=== PATIENT | female | born 1950 | race Caucasian/White ===

== ENCOUNTER → 2017-01-19 | Outpatient (CLI) | payer MEDICARE, OTHER ==
[~2017-01-19] MED LIST: ATOR40TA59 PO; CELE200C PO; GABA300S PO; HYDR-2672 PO; INSU100C4 SQ; INSU100V13 SQ; METF500T25 PO; METO25TA4 PO; MONT10TA9 PO; PANT40TA3 PO; QUIN20TA7 PO; TOPI100T90 PO
--- NOTE | 2017-01-19 15:29 | RAD ---
EXAM: Bilateral lower extremity arterial Doppler sonogram. HISTORY: Diabetic leg with discoloring and pain. TECHNIQUE: Grayscale and color Doppler sonographic imaging of the lower extremity arteries with spectral waveform analysis was performed. COMPARISON: None. FINDINGS: The exam is significantly limited due to patient discomfort and body habitus. There are triphasic waveforms throughout the majority of the bilateral lower extremity arteries, with exception of a biphasic waveform within the left peroneal artery. The proximal right posterior tibial and the right peroneal artery are not seen. There is mild atherosclerotic plaque within the right common femoral artery and left proximal superficial femoral artery. The peak systolic velocities within the right lower extremity measure 114 cm/s within the common femoral artery, 67 cm/s within the deep femoral artery, 90 cm/s within the proximal superficial femoral artery, 84 cm/s within the mid superficial femoral artery, 100 cm/s within the distal superficial femoral artery, 92 cm/s within the popliteal artery, 109 cm/s the distal posterior tibial artery, 87 cm/s within the anterior tibial artery, and 61 cm/s within the dorsalis pedis artery. The peak systolic velocities within the left lower extremity measure 114 cm/s within the common femoral artery, 81 cm/s within the deep femoral artery, 139 cm/s within the proximal superficial femoral artery, 132 cm/s within the mid superficial femoral artery, 99 cm/s within the distal superficial femoral artery, 80 cm/s within the popliteal artery, 103 cm/s within the proximal posterior tibial artery, 125 cm/s the distal posterior tibial artery, 97 cm/s within the peroneal artery, 117 cm/s within the anterior tibial artery, and 89 cm/s within the dorsalis pedis artery. IMPRESSION: 1. Significantly limited exam due to patient discomfort and body habitus. Ankle-brachial indices could not be assessed due to patient pain and the right proximal posterior tibial artery and peroneal artery are not seen. 2. Peak systolic waveforms within the lower extremity arteries, described in detail above. No occlusion is seen.
== END | disposition home or self-care (01) ==
LOC: US 10:21
PROVIDERS: ATTEND Physician Assistant
DX: I73.9 Peripheral vascular disease, unspecified (principal); I87.8 Other specified disorders of veins; E11.9 Type 2 diabetes mellitus without complications; S81.802A Unspecified open wound, left lower leg, initial encounter; W19.XXXA Unspecified fall, initial encounter; Y93.89 Activity, other specified; Y92.89 Other specified places as the place of occurrence of the external cause; Y99.8 Other external cause status
CPT/HCPCS: 93923

== ENCOUNTER → 2017-02-08 | Outpatient (CLI) | payer MEDICARE, OTHER ==
--- NOTE | 2017-02-08 10:52 | RAD ---
Indication neck pain. No known injury. AP and lateral views of the cervical spine were obtained as well as a swimmer's view. There may be some slight prevertebral soft tissue swelling. (The appearance may be a reflection of patient body habitus). Clinical correlation advised. Vertebral height and alignment are well maintained. There is some mild disc space narrowing at C5-6 and C6-7. An acute bony finding is not seen. IMPRESSION: Mild spondylitic changes. No acute finding seen. Possible minimal prevertebral soft tissue swelling. Clinical correlation advised
== END | disposition home or self-care (01) ==
LOC: DXRADRC 10:30
PROVIDERS: ATTEND Physician Assistant
DX: M46.92 Unspecified inflammatory spondylopathy, cervical region (principal); M25.511 Pain in right shoulder
CPT/HCPCS: 72040

== ENCOUNTER 2017-02-13 14:41 | Emergency (ER) | payer MEDICARE, OTHER ==
[2017-02-13 15:22] LABS: BASO # 0.1 x10^3/uL (0.0-0.2); BASO % 1 % (0-3); EOS % 0 % (0-3); HEMATOCRIT 41.8 % (36.0-47.0); HEMOGLOBIN 13.6 g/dL (12.0-15.5); LYMPH # 1.3 x10^3/uL (1.0-4.8); LYMPH % 8 % (24-48); MEAN CORPUSCULAR HEMOGLOBIN 28 pg (25-35); MEAN CORPUSCULAR HGB CONC 33 g/dL (31-37); MEAN CORPUSCULAR VOLUME 87 fL (79-100); MONO # 1.1 x10^3/uL (0.0-1.1); MONO % 7 % (0-9); NEUT # 13.3 x10^3uL (1.8-7.7); NEUT % 84 % (31-73); PLATELET COUNT 146 x10^3/uL (140-400); RED BLOOD COUNT 4.83 x10^6/uL (3.50-5.40); RED CELL DISTRIBUTION WIDTH 14.5 % (11.5-14.5); WHITE BLOOD COUNT 15.9 x10^3/uL (4.0-11.0)
[2017-02-13 15:34] LABS: ALBUMIN 3.4 g/dL (3.4-5.0); CALCIUM 8.9 mg/dL (8.5-10.1); CREATININE 0.9 mg/dL (0.6-1.0); GFR 62.5; POTASSIUM 4.1 mmol/L (3.5-5.1); TOTAL BILIRUBIN 0.9 mg/dL (0.2-1.0); TOTAL PROTEIN 6.8 g/dL (6.4-8.2)
[2017-02-13] MEDS ORDERED: IOHEXOL 300 MG/ML 75 ML VIAL. IV ONE (16:00)
[2017-02-13 16:01] LABS: % BANDS 3 % (0-9); % LYMPHS 10 % (24-48); % MONOS 7 % (0-10); % SEGS 80 % (35-66); PLT ESTIMATE DECREASED (ADEQUATE)
[2017-02-13 16:02] LABS: TOXIC GRANULATION SLIGHT
--- NOTE | 2017-02-13 16:10 | ED.ADGEN ---
Past History Past Medical History: Arthritis, COPD, Diabetes Past Surgical History: Appendectomy, Hysterectomy, Oophorectomy, Other Smoking: Non-smoker Alcohol Use: None Drug Use: None Adult General Chief Complaint Chief Complaint Post dental extraction facial pain HPI HPI Patient is a 76-year-old [id number] diabetic who presents with post- dental extraction submandibular neck pain, tenderness in difficulty swallowing. Patient had all alternating upper and lower teeth extracted 4 days ago. She states she has had increased pain and swelling and redness to submandibular and submental region. She's been unable to take pain medication due to pain with swallowing and is not currently on antibiotics.. She has not had fever chills or sweats. Patient was evaluated by her dentist earlier today and was reassured. She was then seen by her PCP and referred to the ED for further evaluation. No other acute symptoms or complaints. Review of Systems Review of Systems ROS as per HPI. Current Medications Current Medications Current Medications Medications (Trade) Dose Ordered Sig/Colleen Start Time Stop Time Status Last Admin Dose Admin Clindamycin Phosphate (Cleocin 900mg Premix) 50 ml @ 100 mls/hr 1X ONCE 02/13/17 17:00 02/13/17 17:29 DC 02/13/17 16:58 100 MLS/HR Fentanyl Citrate (Fentanyl 2ml Vial) 50 mcg 1X ONCE 02/13/17 17:30 02/13/17 17:31 DC 02/13/17 17:29 50 MCG Iohexol 75 ml 75 ml 1X ONCE 02/13/17 16:00 02/13/17 16:01 DC Ondansetron HCl (Zofran) 4 mg 1X ONCE 02/13/17 17:30 02/13/17 17:31 DC 02/13/17 17:25 4 MG Sodium Chloride 1,000 ml @ 1,000 mls/hr 1X ONCE 02/13/17 16:45 02/13/17 17:44 02/13/17 16:56 1,000 MLS/HR Allergies Allergies Allergies Coded Allergies Type Severity Reaction Last Updated Verified codeine Allergy Intermediate 02/13/17 Yes Physical Exam Physical Exam Constitutional: Well developed, well nourished, no acute distress, non-toxic appearance. HENT: Normocephalic, mild erythema submandibular and submental region with soft tissue tenderness to palpation. No appreciated induration or fluctuance. Exam limited due to the amount of adipose tissue and neck region. No dysphonia, trismus, hoarseness or drooling. Mouth, moist mucous membranes, edentulous. Eyes: PERRLA, EOMI. Neck: Normal range of motion, no tenderness, supple, anterior soft tissue tenderness. Cardiovascular:Heart rate regular rhythm, no murmur. Lungs & Thorax: Bilateral breath sounds clear to auscultation. Skin: Warm, dry, no erythema, mild erythema of lower chin and anterior neck. Current Patient Data Vital Signs Vital Signs Date Time Temp Pulse Resp B/P Pulse Ox O2 Delivery O2 Flow Rate FiO2 02/13/17 17:29 16 95 02/13/17 16:59 109 128/71 Room Air 02/13/17 14:45 99.3 Lab Results Laboratory Tests Test 02/13/17 14:59 White Blood Count 15.9x10^3/uL (4.0-11.0) H Red Blood Count 4.83x10^6/uL (3.50-5.40) Hemoglobin 13.6g/dL (12.0-15.5) Hematocrit 41.8% (36.0-47.0) Mean Corpuscular Volume 87fL (79-100) Mean Corpuscular Hemoglobin 28pg (25-35) Mean Corpuscular Hemoglobin Concent 33g/dL (31-37) Red Cell Distribution Width 14.5% (11.5-14.5) Platelet Count 146x10^3/uL (140-400) Neutrophils (%) (Auto) 84% (31-73) H Lymphocytes (%) (Auto) 8% (24-48) L Monocytes (%) (Auto) 7% (0-9) Eosinophils (%) (Auto) 0% (0-3) Basophils (%) (Auto) 1% (0-3) Neutrophils # (Auto) 13.3x10^3uL (1.8-7.7) H Lymphocytes # (Auto) 1.3x10^3/uL (1.0-4.8) Monocytes # (Auto) 1.1x10^3/uL (0.0-1.1) Eosinophils # (Auto) 0.0x10^3/uL (0.0-0.7) Basophils # (Auto) 0.1x10^3/uL (0.0-0.2) Segmented Neutrophils % 80% (35-66) H Band Neutrophils % 3% (0-9) Lymphocytes % 10% (24-48) L Monocytes % 7% (0-10) Toxic Granulation Slight Platelet Estimate Decreased (ADEQUATE) Sodium Level 140mmol/L (136-145) Potassium Level 4.1mmol/L (3.5-5.1) Chloride Level 102mmol/L (98-107) Carbon Dioxide Level 28mmol/L (21-32) Anion Gap 10 (6-14) Blood Urea Nitrogen 11mg/dL (7-20) Creatinine 0.9mg/dL (0.6-1.0) Estimated GFR (Cockcroft-Gault) 62.5 BUN/Creatinine Ratio 12 (6-20) Glucose Level 257mg/dL (70-99) H Calcium Level 8.9mg/dL (8.5-10.1) Total Bilirubin 0.9mg/dL (0.2-1.0) Aspartate Amino Transferase (AST) 11U/L (15-37) L Alanine Aminotransferase (ALT) 22U/L (14-59) Alkaline Phosphatase 82U/L (46-116) C-Reactive Protein 133.0mg/L (0-3.3) H Total Protein 6.8g/dL (6.4-8.2) Albumin 3.4g/dL (3.4-5.0) Albumin/Globulin Ratio 1.0 (1.0-1.7) EKG EKG [] Radiology/Procedures Radiology/Procedures [CT tissue neck: Sublingual soft tissue swelling, cellulitis concerning for Rony angina and cellulitis of anterior neck.] Impressions: Sublingual swelling and cellulitis of anterior neck Course & Med Decision Making Course & Med Decision Making Pertinent Labs and Imaging studies reviewed. (See chart for details) [IV anabiotic started. Patient except by Dr. Gurmeet Ware at [facility] for admission to the ICU.] Final Impression Final Impression [1. Cellulitis neck 2. Sublingual infection/early abscess] Problems: Dragon Disclaimer Dragon Disclaimer This electronic medical record was generated, in whole or in part, using a voice recognition dictation system. THEO JACKSON DO Feb 13, 2017 16:10
[2017-02-13] MEDS ORDERED: IV NORMAL SALINE 1,000ML 1,000 ML IV ONE (16:45)
--- NOTE | 2017-02-13 16:47 | RAD ---
CT neck with IV contrast History: Swelling and hardness. Comparison: None. Technique: Helical CT of the neck was performed after the administration of intravenous contrast, 75 mL Omnipaque 300. Axial, sagittal, and coronal reconstructions were obtained. One or more of the following individualized dose reduction techniques were utilized for the study: Automated exposure control Adjustment of mA and/or kV according to patient's size Use of iterative reconstruction technique. Findings: There is quantum mottle artifact secondary to the patient's body habitus. There is soft tissue infiltration and inflammation of the anterior neck deep to the platysma from the level of the mandible through the thyroid cartilage. There is also mild thickening of the platysma. Multiple small bilateral neck lymph nodes are seen, compatible with a reactive etiology. There also appears to be a subtle low-attenuation involving the anterior floor the mouth measuring up to 1.5 cm. Consequently, this could represent a developing abscess of the floor the mouth and could represent changes of the Ludgwig's angina. Vocal cords are adducted. Impression: 1. There is inflammatory change as well as evidence of a possible, early abscess involving the anterior floor of the mouth. Consequently, findings could represent early changes of Ludgwig's angina. 2. Inflammatory change involving the anterior neck involving the subcutaneous soft tissues as well as platysma, compatible with cellulitis and myositis. 3. Reactive lymphadenopathy. 4. Results discussed with referring physician, Dr. Alegre, at 1645 hours.
[2017-02-13] MEDS ORDERED: CLINDAMYCIN 900MG PREMIX 50 ML IV ONE (17:00)
[2017-02-13 17:25] VITALS: BP 137/67
[2017-02-13] MEDS ORDERED: FENTANYL PF 100 MCG/2 ML VIAL. IV ONE (17:30)
[2017-02-13] MEDS ORDERED: ONDANSETRON PF 4 MG/2 ML VIAL. IV ONE (17:30)
== END 2017-02-13 18:45 | disposition short-term general hospital (02) ==
LOC: ER 14:41
DX: L03.221 Cellulitis of neck (principal); J44.9 Chronic obstructive pulmonary disease, unspecified; E11.9 Type 2 diabetes mellitus without complications; M19.90 Unspecified osteoarthritis, unspecified site; Z88.5 Allergy status to narcotic agent
CPT/HCPCS: 36415; 70491; 80053; 85007; 85027; 86140; 87040; 87205; 96365; 96375; 99285; J2405; J3010; J3490; J7030

== ENCOUNTER → 2017-08-14 | Outpatient (CLI) | payer MEDICARE, OTHER ==
[~2017-08-14] MED LIST changes: -HYDR-2672 PO; +HYDR-2766 PO; +QUIN20TA17 PO; -QUIN20TA7 PO; +TOPI100T8 PO; -TOPI100T90 PO
--- NOTE | 2017-08-15 15:04 | RAD ---
DATE: 08/14/2017 EXAM: DIGITAL SCREEN BILAT W/CAD HISTORY: Astigmatic screening mammogram. Family history of breast cancer involving patient's sister. COMPARISON: Prior mammogram from 04/16/2015, 03/13/2014 This study was interpreted with the benefit of Computerized Aided Detection (CAD). The breast parenchyma is primarily fatty replaced. Breast parenchyma level density A. FINDINGS: Bilateral CC and MLO views of the breasts were performed. Right breast: There are no suspicious microcalcifications, masses or areas of architectural distortion. Left breast: There are no suspicious microcalcifications, masses or areas of architectural distortion. Findings are stable from prior mammogram. IMPRESSION: Negative bilateral mammogram. Recommend annual screening mammography. BI-RADS CATEGORY: 1 NEGATIVE RECOMMENDED FOLLOW-UP: 12M 12 MONTH FOLLOW-UP PQRS compliance statement: Patient information was entered into a reminder system with a target due date 08/14/2018 for the next mammogram. Mammography is a sensitive method for finding small breast cancers, but it does not detect them all and is not a substitute for careful clinical examination. A negative mammogram does not negate a clinically suspicious finding and should not result in delay in biopsying a clinically suspicious abnormality. "Our facility is accredited by the [employer] Mammography Program."
== END | disposition home or self-care (01) ==
LOC: MAMMO 08:51
PROVIDERS: ATTEND Physician Assistant
DX: Z12.31 Encounter for screening mammogram for malignant neoplasm of breast (principal); Z80.3 Family history of malignant neoplasm of breast
CPT/HCPCS: G0202; 77067

== ENCOUNTER 2017-08-19 11:27 | Inpatient (IN) | payer MEDICARE, OTHER ==
[~2017-08-19] VITALS: Ht 170.2 cm; Wt 180.1 kg
[2017-08-19] VITALS (9 sets, daily range): BP systolic 123–167; BP diastolic 59–78
[2017-08-19] MEDS ORDERED: NITROGLYCERIN SUBLINGUAL 0.4 MG BOTTLE OF 25. SL PRN (11:45)
[2017-08-19] MEDS ORDERED: IPRATRPIUM/ALBUTEROL 0.5/2.5MG 3 ML NEBU. NEB ONE (11:45)
[2017-08-19] MEDS ORDERED: methylPREDNISolone SOD SUCC PF 125 MG/2 ML VIAL. IV ONE (12:00)
[2017-08-19] MEDS ORDERED: ASPIRIN 81 MG TAB.CHEW PO ONE (12:00)
--- NOTE | 2017-08-19 12:13 | PHYS DOC ---
General Chief Complaint: SHORTNESS OF BREATH Stated Complaint: SOB Time Seen by MD: 11:29 Source: patient, EMS, old records Exam Limitations: no limitations Problems: History of Present Illness Initial Comments Patient is a 66-year-old female who uses home O2 when necessary brought to the ED by EMS with chest pain and trouble breathing. Patient states that for the past 3 days she's had intermittent periods of "shakiness" accompanied by chills and sweats and difficulty breathing. She's had some intermittent dry cough and general malaise. Today the patient states that she was essentially at rest "moving around in a chair" when she developed sudden onset chest pain described as tightness across her anterior chest, shortness of breath, 1 episode of nausea with nonbloody emesis, and diaphoresis with "shakiness." She states that she felt weak and was unable to stand to get to her home O2 so her life alert was activated. EMS reports that on arrival they found the patient to be in respiratory distress with room air oxygen saturation 86%. Her oxygen saturation quickly improved to above 95% with 4 L O2 per nasal cannula, and the patient states that her chest pain resolved shortly after the administration of O2 per nasal cannula. No other pre-arrival treatment was administered and once the patient was transferred to the emergency department exam table her oxygen level improved and she removed her O2 with persistent room air oxygen saturations 98- 100%. She was tachycardic on arrival 116 bpm and although her oxygen saturations improved she remained persistently tachycardic however around 110 bpm. When I spoke with her she spoke in full sentences with no conversational dyspnea and her oxygen saturation remained unchanged. On ED arrival her only complaint was a remaining 1/10 anterior chest tightness which was greatly improved no other complaints upon arrival. Patient has severe lower extremity edema which she states has not changed in the past few days. Patient denies ever being a smoker but does carry past medical history diagnosis of COPD in addition to chronic hypoxia, diabetes, morbid obesity, and osteoarthritis. Fingerstick blood sugar on arrival 262. Patient states that she is up-to-date with pneumonia and influenza vaccines Timing/Duration: 1/2 hour Severity: severe Modifying Factors: improves with other Associated Symptoms: chest pain, cough, diaphoresis, fever/chills, malaise, nausea/vomiting, shortness of breath, weakness Allergies: Coded Allergies: codeine (Verified Allergy, Intermediate, 4/24/17) Past Medical History Medical History: other (COPD, chronic hypoxia uses home O2 when necessary, diabetes, morbid obesity, osteoarthritis) Surgical History: appendectomy (hysterectomy with oophorectomy) Social History Smoker: non-smoker Alcohol: none Drugs: none Review of Systems Constitutional: see HPI EENTM: denies nose pain, denies nose congestion, denies throat pain, denies throat swelling, denies mouth pain Respiratory: see HPI Cardiovascular: see HPI Gastrointestinal: see HPI, denies abdominal pain Genitourinary: denies dysuria, denies hematuria, denies pain Musculoskeletal: denies back pain, denies joint swelling, denies neck pain Psychiatric/Neurological: see HPI, denies numbness, denies paresthesia, tremors , denies weakness Hematologic/Lymphatic: denies blood clots, denies easy bleeding, denies easy bruising Physical Exam General Appearance: mild distress, obese Eyes: bilateral eye PERRL, bilateral eye EOMI Ear, Nose, Throat: hearing grossly normal, normal ENT inspection, normal pharynx Neck: non-tender, supple Respiratory: other (mildly decreased breath sounds at the bases with rales at the right midlung) Cardiovascular: tachycardia, systolic murmur (III/ LSB) Gastrointestinal: soft (obese, BS normal, nontender no palpable mass) Back: no CVA tenderness, no vertebral tenderness Extremities: other (4+ pitting lower extremity edema involving bilateral lower legs, chronic venous stasis skin changes with 3 small left lower leg draining venous stasis ulcers) Neurologic/Psychiatric: brim raiser II-XII nml as tested (admitting likely not do that) , no motor/sensory deficits, alert, normal mood/affect, oriented x 3 Skin: warm/dry (lower extremity skin changes as above) Orders, Labs, Meds EKG: sinus tachycardia 106 bpm, prolonged DC 208ms no STEMI changes. Interpreted by Dr Rocha. ABG: pH 7.411, pCO2 35.3, pO2 85, BE -2, HCO3 22.5, TCO2 24, sO2 97%, T 100.4 F PATIENT: RADHA MORENO ACCOUNT: [id number] : 1950 LOCATION: ER AGE: 66 SEX: F EXAM STATUS: REG ER ORD. PHYSICIAN: REVA ROCHA DO REASON: sob PROCEDURE: PORTABLE CHEST 1V PORTABLE CHEST 1V Clinical Indication: sob Comparison: Chest radiograph dated 12/22/2016 Findings: Study limited by patient's body habitus. Low lung volume. No focal consolidation. Normal pulmonary vasculature. No definite pleural effusion or pneumothorax. Stable cardiomegaly. Stable tortuous thoracic aorta. No acute osseous abnormality. IMPRESSION: Low lung volumes. No focal consolidation. DICTATED AND SIGNED BY: KENDALL MENDOZA MD DATE: 08/19/17 1213 CC: MARCO ANTONIO DOUGHERTY; REVA ROCHA DO ~ 1326: Pertinent labs: Platelets 107 and white count is normal, d-dimer 0.94, lactic acid 2.0, BNP 307, urinalysis grossly positive for infection. Patient has received Rocephin and aspirin on arrival and will need CTA of the chest as well as lower extremity Dopplers. Patient will need to be admitted for further evaluation and treatment she is agreeable. 1335: I discussed the patient history, presentation, and ED workup length with production clerks supervisor hospitalist Dr Ortiz. After thorough discussion he requests that the patient be admitted to inpatient ICU status and is in agreement with Rocephin IV , at this time requests IV fluids be held. He requests serial cardiac enzymes and respiratory support, he is in agreement that due to the elevated d-dimer with her constellation of symptoms she will need CTA of the chest to rule out PE as well as bilateral lower extremity Dopplers to rule out DVT. Additionally he requests echocardiogram and cardiology consultation. Although the patient was inpatient status she was held in the emergency department for completion of CTA/ultrasound studies. Her vital signs remained stable and she remained asymptomatic throughout the remainder of her ED course. Impressions: Sepsis Chest pain Respiratory distress Urinary tract infection Elevated d-dimer rule out DVT/PE Diabetes poorly controlled. Departure Disposition: 09 ADMITTED INPATIENT Additional Instructions: Inpatient ICU admission Dr. Ortiz is accepting. REVA ROCHA DO Aug 19, 2017 12:13
--- NOTE | 2017-08-19 12:18 | RAD ---
PORTABLE CHEST 1V Clinical Indication: sob Comparison: Chest radiograph dated 12/22/2016 Findings: Study limited by patient's body habitus. Low lung volume. No focal consolidation. Normal pulmonary vasculature. No definite pleural effusion or pneumothorax. Stable cardiomegaly. Stable tortuous thoracic aorta. No acute osseous abnormality. IMPRESSION: Low lung volumes. No focal consolidation.
[2017-08-19 12:45] LABS: BGAS PH 7.4 (7.35-7.45); DELTA BASE BGAS 0.2 mmol/L (0-3)
[2017-08-19] MEDS ORDERED: cefTRIAXone SODIUM 1 GM VIAL IV ONE (12:52)
[2017-08-19] MEDS ORDERED: IV NORMAL SALINE 50ML 50 ML ONE (12:52)
[2017-08-19] MEDS ORDERED: ACETAMINOPHEN 325 MG TABLET PO ONE (13:00)
[2017-08-19 13:10] LABS: ALBUMIN 3.2 g/dL (3.4-5.0); ALBUMIN/GLOBULIN RATIO 0.8 (1.0-1.7); CALCIUM 8.9 mg/dL (8.5-10.1); CREATININE 0.9 mg/dL (0.6-1.0); GFR 62.5; POTASSIUM 3.5 mmol/L (3.5-5.1); TOTAL BILIRUBIN 0.6 mg/dL (0.2-1.0); TOTAL PROTEIN 7.1 g/dL (6.4-8.2)
[2017-08-19 13:16] LABS: BASO % 0 % (0-3); EOS # 0.1 x10^3/uL (0.0-0.7); EOS % 1 % (0-3); HEMATOCRIT 37.3 % (36.0-47.0); HEMOGLOBIN 12.3 g/dL (12.0-15.5); LYMPH # 0.6 x10^3/uL (1.0-4.8); LYMPH % 6 % (24-48); MEAN CORPUSCULAR HEMOGLOBIN 28 pg (25-35); MEAN CORPUSCULAR HGB CONC 33 g/dL (31-37); MEAN CORPUSCULAR VOLUME 85 fL (79-100); MONO # 0.6 x10^3/uL (0.0-1.1); MONO % 6 % (0-9); NEUT # 8.4 x10^3uL (1.8-7.7); NEUT % 87 % (31-73); PLATELET COUNT 107 x10^3/uL (140-400); RED BLOOD COUNT 4.41 x10^6/uL (3.50-5.40); RED CELL DISTRIBUTION WIDTH 14.5 % (11.5-14.5); WHITE BLOOD COUNT 9.7 x10^3/uL (4.0-11.0)
[2017-08-19 13:17] LABS: BILIRUBIN,URINE NEG (NEG); CLARITY,URINE CLOUDY; COLOR,URINE YELLOW; GLUCOSE,URINE 250 mg/dL (NEG); NITRITE,URINE NEG (NEG); UROBILINOGEN,URINE 1 mg/dL (0.2 mg/dL)
[2017-08-19 13:18] LABS: BACTERIA,URINE FEW /HPF (0-FEW); SQUAMOUS EPITHELIAL CELL,UR OCC /LPF; WBC,URINE 20-40 /HPF (0-4)
--- NOTE | 2017-08-19 13:29 | EKG ---
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
[2017-08-19] MEDS ORDERED: IOHEXOL 300 MG/ML 75 ML VIAL. IV ONE (13:45)
[2017-08-19 13:50] LABS: INFLUENZA A PATIENT NEGATIVE (NEGATIVE); INFLUENZA B PATIENT NEGATIVE (NEGATIVE)
[2017-08-19] MEDS ORDERED: ONDANSETRON PF 4 MG/2 ML VIAL. IV PRN (14:00)
--- NOTE | 2017-08-19 14:55 | RAD ---
CT CHEST WITH CONTRAST, PULMONARY ANGIOGRAM History: cp, sob, elev d-dimer Comparison: Chest radiograph performed same day. Technique: Helical CT of the chest was performed after the administration of 75 cc of Omnipaque 300 intravenous contrast according to PE protocol. 3-D MIP coronal reconstruction was performed to better evaluate the pulmonary arteries. Findings: Suboptimal contrast bolus limits evaluation of the segmental and subsegmental pulmonary arterial system. No definite central or lobar pulmonary embolism. The pulmonary trunk is enlarged measuring 3.5 cm. The thyroid is symmetric. There is no axillary, mediastinal, or hilar adenopathy. The thoracic aorta diameter is normal. Origin of the left vertebral artery directly off the aortic arch, a normal variant. Borderline cardiomegaly There is no pericardial effusion. The central airways are patent. 0.5 cm right lower lobe pulmonary nodule (image 87, series 4). There is no focal consolidation. No pleural effusion is observed. There is no pneumothorax. The visualized upper abdomen is unremarkable. There are moderate degenerative changes of the thoracic spine. IMPRESSION: 1. Suboptimal contrast bolus limits evaluation of the segmental and subsegmental pulmonary arterial system. No definite central or lobar pulmonary embolism. 2. The pulmonary trunk is enlarged measuring 3.5 cm which can be seen with pulmonary hypertension. 3. 0.5 cm right lower lobe pulmonary nodule. Following Fleischner criteria below, if the patient is of low risk, recommend follow-up chest CT in 12 months. If the patient is of high risk, recommend follow-up chest CT in 6-12 months. Nodules detected incidentally at non-screening CT Nodule size (mm) less than or equal to 4 Low Risk patients- no follow-up needed High Risk patients- follow-up at 12 months and if no change, no further imaging needed. Nodule size > 4-6 mm Low risk patients- follow- up at 12 months and if no change, no further imaging needed High risk patients- initial follow-up CT at 6-12 months and then at 18-24 months if no change. Nodule Size > 6-8 mm Low risk patients- initial follow-up CT at 6-12 months and then at 18-24 months if no change. High risk patients- initial follow- up CT at 3-6 months and then at 9-12 months if no change, Nodule Size >8 mm Either low or high risk patients: Follow-up CT at around 3, 9 and 24 [address], PET, and/or biopsy Note: newly detected indeterminate nodule in person 35 years of age or older. Low risk patients- minimal or absent history of smoking and/or other known risk factors. High risk patients- history of smoking or of other known risk factors. PQRS Compliance Statement: One or more of the following individualized dose reduction techniques were utilized for this examination: 1. Automated exposure control 2. Adjustment of the mA and/or kV according to patient size 3. Use of iterative reconstruction technique PQRS Compliance Statement: One or more of the following individualized dose reduction techniques were utilized for this examination: 1. Automated exposure control 2. Adjustment of the mA and/or kV according to patient size 3. Use of iterative reconstruction technique
--- NOTE | 2017-08-19 15:55 | RAD ---
Bilateral lower extremity venous Doppler ultrasound History: elevated d-dimer, abimael leg edema Comparison: None. Procedure: Color flow Doppler, Doppler spectral analysis, and 2D images are obtained with and without compression in the area of the common femoral vein, superficial femoral vein - femoral vein junction, main femoral vein (superficial femoral vein) and popliteal vein. Veins of the proximal calf are also imaged. Findings: Technically difficult exam due to body habitus and leg swelling. Unable to visualize bilateral calf veins. There is normal color flow, augmentation, and compressibility of all visualized vein segments. No evidence of deep venous thrombus is present. There is a prominent lymph node in the left groin. IMPRESSION: 1. No evidence of right or left lower extremity deep venous thrombosis. 2. Unable to visualize calf veins bilaterally. Technically difficult exam. Electronically signed by: Warner Ferreira MD (08/19/2017 3:52 PM) [facility] [place]
[2017-08-19] MEDS ORDERED: SERT50TA PO (16:37)
[2017-08-19] MEDS ORDERED: ASPI81TA50 PO (16:37)
[2017-08-19] MEDS ORDERED: LIRA0.6P2 SQ (16:37)
[2017-08-19] MEDS ORDERED: LISI10TA2 PO (16:38)
[2017-08-19] MEDS ORDERED: LEVO5TAB2 PO (16:39)
[2017-08-19] MEDS ORDERED: MUPI22OI2 TP (16:40)
[2017-08-19] MEDS ORDERED: MONT10TA9 PO (16:42)
[2017-08-19] MEDS ORDERED: HYDROcodone/APAP 10/325 1 TAB TABLET PO PRN (17:30)
[2017-08-19] MEDS ORDERED: DEXTROSE 50% 25 GM / 50ML DISP.SYRIN. IV PRN (18:00)
[2017-08-19] MEDS ORDERED: AZITHROMYCIN 500 MG VIAL. IV ONE (18:22)
[2017-08-19] MEDS ORDERED: IV NORMAL SALINE 250ML 250 ML ONE (18:22)
[2017-08-19] MEDS: AZITHROMYCIN 500 MG in IV NORMAL SALINE 250ML 250 ML IV SCH (19:18)
[2017-08-19] MEDS: ACETAMINOPHEN 325 MG TABLET PO PRN (19:39)
[2017-08-19] MEDS: ENOXAPARIN ** NOTE DOSE ** SYRINGE SQ SCH (19:39)
--- NOTE | 2017-08-19 20:15 | HP ---
ADMIT DATE: 08/19/2017 HISTORY OF PRESENT ILLNESS: The patient is a 66-year-old female patient, who was brought to the Emergency Room by the emergency medical service personnel with chest pain and shortness of breath. The patient stated that for the past 3 days, she had had intermittent periods of shakiness accompanied with chills and sweats, and difficulty breathing. She had some intermittent dry cough and general malaise today. She stated that she was essentially at rest, moving around in a chair and she developed sudden onset of chest pain described as tightness across her anterior chest with shortness of breath, one episode of nausea and nonbloody emesis, and diaphoresis with shakiness. She stated that she felt weak and was unable to stand to get to her oxygen, so her Life Alert was activated. Upon arrival of the emergency medical service personnel, they found the patient to be in respiratory distress with oxygen saturation of only 86%. Her oxygen saturation quickly improved to about 95% with 4 liters of oxygen by nasal cannula. Her chest pain has resolved shortly after the administration of oxygen by nasal cannula. No other treatment was administered unless the patient was transferred to Emergency Department. Her oxygen level improved and she removed her oxygen with persistent room air oxygen of 98-100%. She was slightly tachycardic on arrival at 116 beats per minute and although her oxygen saturation improved, she remained persistently tachycardic around 110 beats per minute. She was able to finish sentences without any shortness of breath and without desaturation and the only complaint when she arrived to the Emergency Room was mild chest tightness that has greatly improved. She was evaluated in the Emergency Room; however, her white cell count was normal. She was found to have a low platelet count. Her blood gases were within acceptable range. However, his D-dimer was elevated at 0.94 and therefore the patient has had a CT scan of the chest with PE protocol and bilateral lower extremity venous Doppler ultrasound and she has a tendency for recurrent urinary tract infection, in fact her urinalysis showed that she has moderate amount of leukocyte esterase, 20-40 wbc's, and few bacteria and she was admitted to continue with oxygen therapy, continue with IV antibiotic and was started on IV Rocephin. She was given one dose of Lovenox, pending the results of CT scan and Doppler ultrasound. PAST MEDICAL HISTORY: Significant for type 2 diabetes mellitus, COPD, morbid obesity, obstructive sleep apnea, recurrent urinary tract infection, and Rony's angina. PAST SURGICAL HISTORY: Significant for incision of the neck abscess, total abdominal hysterectomy and bilateral salpingo-oophorectomy, cholecystectomy, appendectomy. She underwent gastric bypass surgery, esophagogastroduodenoscopy, colonoscopy with polypectomy. The patient stated that she lost about 80 pounds after she has gastric bypass surgery; however, she regained all her weight when they revised the surgery; however, last year she managed to lose about 100 pounds on her own. ALLERGIES: She is ALLERGIC TO CODEINE and she has also SEASONAL ALLERGIES. MEDICATIONS: She is currently on following medications: She is on aspirin 81 mg once a day, atorvastatin 40 mg once a day, gabapentin 300 mg daily. She is on hydrocodone/APAP 10/325 one tablet every 6-8 hours. She is on NovoLog insulin. She takes 5 units with meals and Levemir insulin 65 units at once a day. She is also on Zyrtec 5 mg once a day, Victoza 1.8 mg subq daily, lisinopril 10 mg once a day, metformin 500 mg daily, montelukast sodium 10 mg at bedtime, Bactroban ointment topically twice a day, quinapril 20 mg once a day and sertraline 50 mg once a day. FAMILY HISTORY: The patient has 3 brothers, one of them of aneurysm and a stroke at the age of 43. The other 2 of COPD, one her sisters at the age of 38 because of stomach cancer, 2 sisters are cancer survivor. One had a breast cancer and the other one has what seems to be either endometrial or ovarian cancer and has survived for the last 18 years. Her father of COPD, pneumonia, coronary artery disease in his 60s. Mother in her 60s. SOCIAL HISTORY: She is . She has 2 sons. 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 REVIEW OF SYSTEMS: The patient has cataract that she is scheduled to have surgery for sometime ____ in August. Denied any glaucoma or macular degeneration. Denied any earache, tinnitus, or sensorineural deafness. Denied any nosebleeds, stuffy nose, or postnasal drip. Denied any sore throat, sore tongue, toothache, hoarseness of voice or difficulty swallowing. Did have some nausea and vomiting today, but denied any hematemesis, melena, or hematochezia. Denied any dysuria, frequency, or hematuria. Did complain of chest pain and shortness of breath. She also complained of chills and fever. Denied any dizziness, lightheadedness, or vertigo. PHYSICAL EXAMINATION: GENERAL: On arrival to the Emergency Room, she was pale, but not jaundiced, cyanosis, or thyromegaly. No jugular venous distension. No lower limb edema. VITAL SIGNS: Her heart rate was 116, blood pressure 130/64, temperature was 100.2, respiratory rate was 20, and oxygen saturation was 97% on room air. HEENT: Showed normocephalic, atraumatic. NECK: Supple. HEART: Showed normal first and second heart sounds with no gallop, rub, or murmur. CHEST: Clear to auscultation. No crepitation or rhonchi. ABDOMEN: Distended, soft, nontender. No guarding or rigidity. No organomegaly. Hernial orifices intact. Bowel sounds normal. NEUROLOGIC: She was awake, alert, responding appropriately. Cranial nerves intact. EXTREMITIES: She moves her extremities without difficulty, although she is mostly using a scooter. She does walk for a short distance with a walker. She is fairly independent with assistance from her [id number]. LABORATORY DATA: On arrival showed that her white cell count was 9,700, hemoglobin 12.3, hematocrit 37.3, MCV 85, and platelet count of 107,000 with a manual differential showed 87% polymorphs, 6% lymphocytes, and 6% monocytes. Her prothrombin time was 10, INR 1, aPTT was 25. D-dimer was 0.94. Her blood gases showed a pH of 7.40, pCO2 of 37, pO2 of 91, bicarbonate 23, and oxygen saturation was 97% on room air. Her chemistry showed a serum sodium 139, potassium 3.5, chloride 102, bicarbonate 28, anion gap of 9, BUN 18, creatinine 0.9, estimated GFR was 62 mL per minute. Her glucose was 289, calcium was 8.9, lactic acid was 2. Total bilirubin, AST, ALT, alkaline phosphatase were normal. Her beta natriuretic peptide was 307. Total protein 7.1, albumin was 3.2. Urinalysis showed the urine was yellow, cloudy, with a pH of 7, specific gravity of 1.020. There was a trace of protein, large amount of glucose, negative for ketones, small amount of blood, negative for nitrites; however, there is moderate amount of leukocyte esterase with 3-4 rbc's, 20-40 wbc's, few bacteria. They stated her chest x-ray showed low lung volumes, no focal consolidation, normal pulmonary vasculature. No definite pleural effusion or pneumothorax, stable cardiomegaly, stable tortuous thoracic aorta, no acute osseous abnormality. The bilateral lower extremity venous Doppler ultrasound showed no evidence of right or left lower extremity deep vein thrombosis, unable to visualize the calf veins bilaterally with technically difficult exam. CT scan of the chest showed that: 1. It was suboptimal contrast ____ limits evaluation of the segmental and subsegmental pulmonary arterial system; however, there is no definite central or lobar pulmonary embolism. 2. The pulmonary trunk is enlarged measuring 3.5 cm, which can be seen with pulmonary hypertension. She has 0.5 cm right lower lobe pulmonary nodule. 3. If patient is high risk, recommend follow up with a chest CT in 6-12 months. ASSESSMENT AND PLAN: In summary, this is a 66-year-old female patient, who came in with complaint of shortness of breath, hypoxia, and chest discomfort. Her discomfort and shortness of breath has relieved once we had started her on oxygen. She has multiple risk factors for coronary artery disease. Her D-dimer was high, but CT scan was negative as well as ultrasound. We will do 2 more sets of cardiac enzyme. We will also check her fasting lipid profile and continue with IV antibiotic for urinary tract infection. She has leukocyturia and leukocyte esterase was high and we will consult the Cardiology team tomorrow as she has multiple risk factors for coronary artery disease. TSERING COLLINS MD DR: LUCIA/jorge JOB#: [id number] / [id number]
[2017-08-19] MEDS: MUPIROCIN 2% TOPICAL OINTMENT 22GM TUBE. TP SCH (22:08)
[2017-08-20] VITALS (21 sets, daily range): BP systolic 108–178; BP diastolic 51–82
[2017-08-20 06:24] LABS: BASO % 0 % (0-3); EOS # 0.1 x10^3/uL (0.0-0.7); EOS % 1 % (0-3); HEMATOCRIT 35.8 % (36.0-47.0); LYMPH # 1.7 x10^3/uL (1.0-4.8); LYMPH % 18 % (24-48); MEAN CORPUSCULAR HEMOGLOBIN 28 pg (25-35); MEAN CORPUSCULAR HGB CONC 34 g/dL (31-37); MEAN CORPUSCULAR VOLUME 84 fL (79-100); MONO # 0.7 x10^3/uL (0.0-1.1); MONO % 7 % (0-9); NEUT # 6.7 x10^3uL (1.8-7.7); NEUT % 73 % (31-73); PLATELET COUNT 114 x10^3/uL (140-400); RED BLOOD COUNT 4.29 x10^6/uL (3.50-5.40); RED CELL DISTRIBUTION WIDTH 14.5 % (11.5-14.5); WHITE BLOOD COUNT 9.2 x10^3/uL (4.0-11.0)
[2017-08-20 06:38] LABS: ALBUMIN 2.7 g/dL (3.4-5.0); ALBUMIN/GLOBULIN RATIO 0.7 (1.0-1.7); CALCIUM 8.6 mg/dL (8.5-10.1); CREATININE 0.8 mg/dL (0.6-1.0); GFR 71.5; POTASSIUM 3.5 mmol/L (3.5-5.1); TOTAL BILIRUBIN 0.7 mg/dL (0.2-1.0); TOTAL PROTEIN 6.5 g/dL (6.4-8.2)
[2017-08-20] MEDS: ACETAMINOPHEN 325 MG TABLET PO PRN (08:12)
[2017-08-20] MEDS ORDERED: INSULIN ASPART 300 UNITS/3 ML INSULN.PEN SQ SCH ×3 (08:35→22:00)
[2017-08-20] MEDS ORDERED: INSULIN DETEMIR 300 UNITS/3 ML INSULN.PEN. SQ SCH ×2 (09:00→14:19)
[2017-08-20] MEDS: ASPIRIN ENTERIC COATED 81 MG TABLET.DR. PO SCH (09:27)
[2017-08-20] MEDS: MONTELUKAST 10 MG TABLET. PO SCH (09:27)
[2017-08-20] MEDS: CETIRIZINE HCL 10 MG TABLET PO SCH (09:27)
[2017-08-20] MEDS: GABAPENTIN 300 MG CAPSULE. PO SCH (09:27)
[2017-08-20] MEDS: SERTRALINE 50 MG TABLET. PO SCH (09:27)
[2017-08-20] MEDS: ATORVASTATIN CALCIUM 20 MG TABLET PO SCH (09:27)
[2017-08-20] MEDS: MUPIROCIN 2% TOPICAL OINTMENT 22GM TUBE. TP SCH ×2 (09:28→21:14)
[2017-08-20] MEDS: LISINOPRIL 10 MG TABLET PO SCH (09:28)
[2017-08-20] MEDS: ENOXAPARIN ** NOTE DOSE ** SYRINGE SQ SCH ×2 (09:28→21:14)
[2017-08-20] MEDS: INSULIN ASPART 300 UNITS/3 ML INSULN.PEN SQ SCH ×2 (12:19→17:29)
--- NOTE | 2017-08-20 16:49 | CONS ---
DATE OF CONSULTATION: 08/20/2017 REASON FOR CONSULTATION: Chest pain. HISTORY OF PRESENT ILLNESS: The patient is a 66-year-old woman with a past medical history as noted below, who presents to the hospital in the setting of significant shakes over the course of last few days. She had some shakes and chills on prior to admission and then also had recurrent chills, which did not resolve after several hours and therefore because of some dyspnea associated with these chills, she called on her life alert systems and was ultimately admitted to the hospital for further evaluation and treatment. In the Emergency Department, she was hypoxic and with some supplemental oxygen therapy has improved. Currently, she is resting comfortably in her chair. Denies any specific chest pain, orthopnea or PND, but she is limited in her activity level secondary to morbid obesity. She uses a motorized wheelchair to get around for the most part. PAST MEDICAL HISTORY: 1. Morbid obesity. 2. Metabolic syndrome. 3. Diabetes. 4. Obstructive sleep apnea. 5. COPD. SURGICAL HISTORY: Multiple including salpingo-oophorectomy and hysterectomy. She apparently already has gastric bypass and is attempting to lose several pounds before knee surgery. ALLERGIES: CODEINE. CURRENT CARDIOVASCULAR MEDICATIONS: Include atorvastatin 20 mg daily, lisinopril 10 mg daily, aspirin 81 mg daily, Lovenox 60 mg subQ b.i.d. REVIEW OF SYSTEMS: Negative for 10 out of 14 systems reviewed unless otherwise mentioned above in HPI. FAMILY HISTORY: Noncontributory. PHYSICAL EXAMINATION: VITAL SIGNS: Afebrile, 81, 18, 110/64, 96% on room air. GENERAL: She is alert and oriented, in no acute distress. HEAD AND NECK: Unremarkable except for a thick neck consistent with her history of sleep apnea. CARDIAC: Regular rate and rhythm without any murmurs, rubs, gallops. LUNGS: Fairly clear to auscultation anteriorly only. ABDOMEN: Significantly obese and unable to palpate for any masses. Bowel sounds are extremely distant and unheard. EXTREMITIES: She has chronic bilateral lymphedema and significant venous stasis changes with lichenification of her skin. NEUROLOGIC: No focal deficits. DIAGNOSTIC STUDIES: Reviewed and her CBC, BMP and LFTs are grossly normal except for hyperglycemia. She has a very minimally elevated BNP at 1362. Lipid profile is unremarkable with excellent LDL. Urinalysis is notable for heavy glucose and negative nitrite. ABG is unremarkable. CTA of the chest does not reveal any significant obstructive emboli. Lower extremity venous Doppler study is unremarkable, but although was technically difficult. Her EKG was reviewed and is notable for sinus rhythm without any acute ST-T wave changes. IMPRESSION: 1. Noncardiac chest pain at this present time. 2. Morbid obesity. 3. Chronic venous stasis changes. RECOMMENDATIONS: Continue current medical therapy given her excellent blood pressure control and cholesterol control. No further cardiac testing necessary at this time. She has had negative cardiac enzymes and her EKG is unremarkable. We will obtain an echocardiogram to rule out any significant underlying pulmonary hypertension as a source of her lower extremity edema. This can also be done on an outpatient basis, but otherwise no further testing necessary at this time. Thank you for this consultation. ROLANDA LEARY MD DR: BRAYDEN/jorge JOB#: [id number] / [id number]
[2017-08-20 17:10] LABS: HEMOGLOBIN A1C 8.6 % (4.8-5.6)
[2017-08-20] MEDS: AZITHROMYCIN 500 MG in IV NORMAL SALINE 250ML 250 ML IV SCH (18:04)
[2017-08-20] MEDS: NON FORMULARY ITEM (Liraglutide (Victoza 3-Pak) 1.8 MG) SQ SCH (18:30)
[2017-08-20] MEDS: LACTOBACILLUS ACIDOPH & BULGAR 1 TABLET. PO SCH (21:14)
[2017-08-20] MEDS ORDERED: DEXTROSE 50% 25 GM / 50ML DISP.SYRIN. IV PRN (21:15)
--- NOTE | 2017-08-20 23:09 | PN ---
DATE: 08/20/2017 SUBJECTIVE: The patient is resting, slightly propped up in her recliner, in no apparent respiratory distress. On questioning her, the only complaint is that her blood sugar is not optimally controlled. Denied any chest pain or shortness of breath. She has had a CT scan of the chest with PE protocol, which was negative for PE and bilateral venous Doppler ultrasound was negative for deep vein thrombosis; however, she has an episode of chest pain during which she became hypoxic. She has multiple risk factors for coronary artery disease and we did consult the cardiology team. She did have 3 sets of cardiac enzymes that were negative. Her beta natriuretic peptide was high at 1362. Her serum triglyceride was 125, total cholesterol was 110, LDL cholesterol was 52, VLDL was 25, and HDL cholesterol was 33. PHYSICAL EXAMINATION: GENERAL: When I examined her today, she looked well and was clearly in no apparent respiratory distress, pale, but no jaundice, cyanosis, or thyromegaly. No jugular venous distention. No limb edema. VITAL SIGNS: Her heart rate was 84, blood pressure 113/58, temperature was 98.1, respiratory rate was 19 and oxygen saturation was 99% on room air. HEAD, EYES, EARS, NOSE AND THROAT: Showed normocephalic, atraumatic. NECK: Supple. HEART: Showed normal first and second heart sounds with no gallop, rub or murmur. CHEST: Clear to auscultation. No crepitation or rhonchi. ABDOMEN: Distended, soft, nontender. No guarding or rigidity. No organomegaly. Hernial orifices intact. Bowel sounds normal. NEUROLOGIC: She was awake, alert, responding appropriately. Cranial nerves intact. Apparently, she moves upper extremities to much greater extent than the lower extremities. She is mostly wheelchair bound. Her intake over the last 24 hours was 1680 and output was 1400. LABORATORY DATA: This morning showed a serum sodium of 137, potassium 3.5, chloride 102, bicarbonate 27, anion gap of 8, BUN 12, creatinine 0.8, estimated GFR was 71 mL per minute. Her glucose was 217, calcium was 8.6. Total bilirubin, AST, ALT, alkaline phosphatase were normal. Her total protein was 6.5, albumin was 2.7. White cell count was 9200, hemoglobin 12, hematocrit 35.8, MCV 84 and platelet count 214,000 with normal manual differential. ASSESSMENT: Chest pain, shortness of breath and hypoxia. The patient has 3 sets of cardiac enzymes that ruled out myocardial infarction. Her D-dimer was elevated and therefore she had a CT scan of the chest with PE protocol that was negative for PE. He has bilateral lower extremity venous Doppler ultrasound that was negative also for deep venous thrombosis. She has urinary tract infection for which she is now on IV Rocephin. Other medical problems including poorly controlled type 2 diabetes, chronic obstructive pulmonary disease, morbid obesity, obstructive sleep apnea. PLAN: To continue with IV Rocephin. We have consulted the Cardiology team and given her multiple risk factors, she probably would need either stress test and/or cardiac catheterization. TSERING COLLINS MD DR: LUCIA/jorge JOB#: [id number] / [id number]
[2017-08-21] VITALS (9 sets, daily range): BP systolic 116–155; BP diastolic 56–80
[2017-08-21] MEDS: ASPIRIN ENTERIC COATED 81 MG TABLET.DR. PO SCH (08:36)
[2017-08-21] MEDS: GABAPENTIN 300 MG CAPSULE. PO SCH (08:36)
[2017-08-21] MEDS: LACTOBACILLUS ACIDOPH & BULGAR 1 TABLET. PO SCH (08:36)
[2017-08-21] MEDS: CETIRIZINE HCL 10 MG TABLET PO SCH (08:36)
[2017-08-21] MEDS: ATORVASTATIN CALCIUM 20 MG TABLET PO SCH (08:36)
[2017-08-21] MEDS: SERTRALINE 50 MG TABLET. PO SCH (08:36)
[2017-08-21] MEDS: MONTELUKAST 10 MG TABLET. PO SCH (08:36)
[2017-08-21] MEDS: LISINOPRIL 10 MG TABLET PO SCH (08:37)
[2017-08-21] MEDS: ENOXAPARIN ** NOTE DOSE ** SYRINGE SQ SCH (08:37)
[2017-08-21] MEDS: INSULIN ASPART 300 UNITS/3 ML INSULN.PEN SQ SCH ×3 (08:41→16:47)
[2017-08-21] MEDS: NON FORMULARY ITEM (Liraglutide (Victoza 3-Pak) 1.8 MG) SQ SCH (09:39)
[2017-08-21] MEDS: MUPIROCIN 2% TOPICAL OINTMENT 22GM TUBE. TP SCH (09:39)
--- NOTE | 2017-08-21 10:59 | CONS ---
DATE OF CONSULTATION: NO DICTATION. ROLANDA LEARY MD DR: BRAYDEN/jorge JOB#: [id number] / [id number]
--- NOTE | 2017-08-21 13:55 | CARD ---
APPROVED REPORT EXAM: Two-dimensional and M-mode echocardiogram with Doppler and color Doppler. Other Information Quality : Technically Limited Rhythm : NSRTechnically limited study due to body habitus. INDICATION Chest Pain 2D DIMENSIONS RVDd3.0 (2.9-3.5cm)Left Atrium(2D)3.6 (1.6-4.0cm) IVSd1.0 (0.7-1.1cm)Aortic Root(2D)2.8 (2.0-3.7cm) LVDd5.4 (3.9-5.9cm)LVOT Diameter2.1 (1.8-2.4cm) PWd1.0 (0.7-1.1cm)LVDs3.3 (2.5-4.0cm) FS (%) 34.7 %SV96.4 ml LVEF(%)64.5 (>50%) Aortic Valve AoV Peak Jaspreet.150.8cm/sAoV VTI31.1cm AO Peak GR.9.1mmHgLVOT Peak Jaspreet.104.6cm/s LVOT VTI 21.28cmAO Mean GR.6mmHg MARJORIE (VMAX)2.34pt1TMO (VTI)2.41cm2 Mitral Valve MV E Clprueus91.1cm/sMV E Peak Gr.4mmHg MV DECEL [id number] A Xehpuacy13.1cm/s MV E Mean Gr.3mmHgMV OVW16ta E/A Ratio0.8MV A Rbsvdefn001ch MVA (PHT)3.67cm2 LEFT VENTRICLE The left ventricle is normal size. There is normal left ventricular wall thickness. Left ventricle sy stolic function is normal. The Ejection Fraction is 60-65%. There is grossly normal LV segmental wall motion. Tissue Doppler imaging reveals mild left ventricular diastolic dysfunction. RIGHT VENTRICLE The right ventricle is normal size. The right ventricular systolic function is normal. ATRIA The left atrium size is normal. The right atrium size is normal. The interatrial septum is intact wit h no evidence for an atrial septal defect or patent foramen ovale as noted on 2-D or Doppler imaging. AORTIC VALVE The aortic valve is not well visualized but appears trileaflet. Doppler and Color Flow revealed trace aortic regurgitation. There is no significant aortic valvular stenosis. MITRAL VALVE Mitral annular calcification is borderline. There is no evidence of mitral valve prolapse. There is n o mitral valve stenosis. Doppler and Color Flow revealed no mitral valve regurgitation noted. TRICUSPID VALVE The tricuspid valve is normal in structure and function. Doppler and Color Flow revealed no tricuspid valve regurgitation noted. Unable to estimate PA pressure. There is no tricuspid valve stenosis. PULMONIC VALVE The pulmonic valve is not well visualized. Doppler and Color Flow revealed no pulmonic valvular regur gitation. There is no pulmonic valvular stenosis. GREAT VESSELS The aortic root is normal in size. Pulmonary veins not recorded. The IVC was not visualized. PERICARDIAL EFFUSION There is no evidence of significant pericardial effusion. Critical Notification Critical Value: No <Conclusion> Left ventricle systolic function is normal. The Ejection Fraction is 60-65%. There is grossly normal LV segmental wall motion.
[2017-08-21] MEDS ORDERED: INSU100C4 SQ (14:51)
[2017-08-21] MEDS ORDERED: FOSFOMYCIN TROMETHAMINE 3 GM PACKET PO ONE (15:00)
[2017-08-21] MEDS ORDERED: INSULIN DETEMIR 300 UNITS/3 ML INSULN.PEN. SQ SCH (21:00)
[2017-08-21] MEDS ORDERED: INSULIN ASPART 300 UNITS/3 ML INSULN.PEN SQ SCH (21:00)
--- NOTE | 2017-08-21 22:27 | DS ---
DATE OF DISCHARGE: 08/21/2017 DISCHARGE DIAGNOSES: 1. Chest pain, myocardial infarction ruled out, unknown etiology. 2. Morbid obesity. 3. Poorly controlled type 2 diabetes, insulin was increased. 4. Obstructive sleep apnea. 5. Urinary tract infection. 6. Elevated D-dimer, negative for pulmonary embolism or deep venous thrombosis. 7. Albumin was 3.2. She has mild malnutrition due to poor diet. HOSPITAL COURSE: A 66-year-old female who was admitted by Dr. Jannie Ortiz with complaints of chest pain and shortness of breath, sweats, difficulty breathing. She had a low oxygen saturation at her house of 86%, but has not been hypoxic here at the hospital. She has had what seems to be UTI as the culture is not back, what appears to be UTI and she was treated with Rocephin and given a dose of Monurol before discharge. She had an echocardiogram which was essentially normal and was seen by cardiology also. It goes without saying that the patient needs to lose weight. OBJECTIVE: VITAL SIGNS: Blood pressure 125/72, pulse 92, respirations 16, pulse ox 96% on room air. Height 67 inches, weight 397 pounds. GENERAL: Morbidly obese female in no acute distress. LUNGS: Clear. CARDIOVASCULAR: Regular rhythm and rate. ABDOMEN: Large and obese. EXTREMITIES: With chronic venous stasis changes. PLAN: Discharge home with home health and follow up with her regular physician. SVETLANA DE LEÓN DO DR: CARINA/jorge JOB#: [id number] / [id number]
[2017-08-23] MEDS ORDERED: metFORMIN XR 500 MG TAB.ER.24H PO SCH (08:00)
== END 2017-08-21 17:38 | disposition home health service (06) | DRG 872 ==
LOC: ER 11:27 → ICU 15:39
PROVIDERS: ADMIT Internal Medicine; ATTEND Internal Medicine
DX: A41.9 Sepsis, unspecified organism (principal); E11.65 Type 2 diabetes mellitus with hyperglycemia; J44.9 Chronic obstructive pulmonary disease, unspecified; Z99.81 Dependence on supplemental oxygen; N39.0 Urinary tract infection, site not specified; E44.1 Mild protein-calorie malnutrition; Z68.44 Body mass index [BMI] 60.0-69.9, adult; E66.01 Morbid (severe) obesity due to excess calories; G47.33 Obstructive sleep apnea (adult) (pediatric); I87.8 Other specified disorders of veins; R07.89 Other chest pain; M19.90 Unspecified osteoarthritis, unspecified site; R09.02 Hypoxemia; Z87.440 Personal history of urinary (tract) infections; Z90.710 Acquired absence of both cervix and uterus; Z98.84 Bariatric surgery status; Z90.722 Acquired absence of ovaries, bilateral; Z90.49 Acquired absence of other specified parts of digestive tract; Z80.0 Family history of malignant neoplasm of digestive organs; Z80.3 Family history of malignant neoplasm of breast; Z80.41 Family history of malignant neoplasm of ovary; Z82.3 Family history of stroke; Z82.49 Family history of ischemic heart disease and other diseases of the circulatory system; Z82.5 Family history of asthma and other chronic lower respiratory diseases
CPT/HCPCS: 36415; 71010; 71275; 80053; 80061; 81001; 82550; 82803; 82947; 83036; 83605; 83880; 84484; 85025; 85379; 85610; 85730; 87040; 87086; 87186; 87641; 87804; 93005; 93306; 93970; 96365; J0456; J0696; J1650; J1815; J7050; Q9967; 99285-25

== ENCOUNTER → 2018-06-18 | Outpatient (CLI) | payer MEDICARE, OTHER ==
[2017-08-21 16:36] VITALS: BP 130/67
[~2018-06-18] MED LIST changes: +ASPI81TA50 PO; +LEVO5TAB2 PO; +LIRA0.6P2 SQ; +LISI10TA2 PO; +MUPI22OI2 TP; +SERT50TA PO
--- NOTE | 2018-06-18 13:27 | RAD ---
EXAM: Carotid Doppler sonogram. HISTORY: Headaches. TECHNIQUE: Owens scale and color Doppler sonographic evaluation of the neck with spectral waveform analysis was performed and static images are submitted for review. FINDINGS: The peak systolic velocity within the right common carotid artery is 83 cm/sec. The peak systolic velocity within the right internal carotid artery is 90 cm/sec and the end diastolic velocity within the right internal carotid artery is 27 cm/sec. The right ICA/CCA ratio is 1.1. The peak systolic velocity within the left common carotid artery is 115 cm/sec. The peak systolic velocity within the left internal carotid artery is 81 cm/sec and the end diastolic velocity within the left internal carotid artery is 28 cm/sec. The left ICA/CCA ratio is 0.7. There is normal antegrade flow within both vertebral arteries. IMPRESSION: No Doppler evidence of hemodynamically significant stenosis within the carotid or vertebral arteries. PQRS Compliance Statement - Stenosis calculations for CT, MR and conventional angiography are based upon measurement of the distal ICA diameter in accordance with the NASCET methodology. Stenosis calculations for carotid ultrasound studies are derived from validated velocity criteria which are known to correlate with the NASCET methodology. Electronically signed by: Sherrill Crowder MD (06/18/2018 1:25 PM) [place] [id number]
== END | disposition home or self-care (01) ==
LOC: US 09:31
PROVIDERS: ATTEND Physician Assistant
DX: R51 Headache (principal); E11.9 Type 2 diabetes mellitus without complications; J44.9 Chronic obstructive pulmonary disease, unspecified; Z90.722 Acquired absence of ovaries, bilateral; Z90.710 Acquired absence of both cervix and uterus; Z90.49 Acquired absence of other specified parts of digestive tract; Z68.44 Body mass index [BMI] 60.0-69.9, adult; Z88.5 Allergy status to narcotic agent; Z87.440 Personal history of urinary (tract) infections; Z80.41 Family history of malignant neoplasm of ovary; Z82.3 Family history of stroke; Z82.49 Family history of ischemic heart disease and other diseases of the circulatory system; Z80.0 Family history of malignant neoplasm of digestive organs; Z80.3 Family history of malignant neoplasm of breast; Z82.5 Family history of asthma and other chronic lower respiratory diseases; Z79.4 Long term (current) use of insulin; Z86.69 Personal history of other diseases of the nervous system and sense organs
CPT/HCPCS: 93880

== ENCOUNTER → 2018-08-30 | Outpatient (CLI) | payer MEDICARE, OTHER ==
[2017-08-21 16:36] VITALS: BP 130/67
--- NOTE | 2018-08-30 13:59 | RAD ---
DATE: 09/09/2018 EXAM: DIGITAL SCREEN BILAT W/CAD HISTORY: Routine screening COMPARISON: 08/14/2017 This study was interpreted with the benefit of Computerized Aided Detection (CAD). Breast Density: FATTY The breast parenchyma is primarily fatty replaced. Breast parenchyma level density A. FINDINGS: No new or enlarging breast densities are seen. Benign type calcifications are present. No suspicious microcalcifications have developed. IMPRESSION: Stable mammograms without evidence of malignancy. BI-RADS CATEGORY: 2 BENIGN FINDING(S) RECOMMENDED FOLLOW-UP: 12M 12 MONTH FOLLOW-UP PQRS compliance statement: Patient information was entered into a reminder system with a target due date for the next mammogram. Mammography is a sensitive method for finding small breast cancers, but it does not detect them all and is not a substitute for careful clinical examination. A negative mammogram does not negate a clinically suspicious finding and should not result in delay in biopsying a clinically suspicious abnormality. "Our facility is accredited by the [employer] Mammography [employer]."
== END | disposition home or self-care (01) ==
LOC: MAMMO 11:51
PROVIDERS: ATTEND Physician Assistant
DX: Z12.31 Encounter for screening mammogram for malignant neoplasm of breast (principal)
CPT/HCPCS: 77067

== ENCOUNTER → 2021-06-15 | Outpatient (CLI) | payer MEDICARE, OTHER ==
[2017-08-21 16:36] VITALS: BP 130/67
[~2021-06-15] MED LIST changes: -HYDR-2766 PO; +HYDR-2769 PO; +LISI10TA16 PO; -LISI10TA2 PO; +MONT10TA80 PO; -MONT10TA9 PO
--- NOTE | 2021-06-15 11:04 | RAD ---
EXAM: Bilateral screening mammogram. HISTORY: 70-year-old female presents for screening mammography. TECHNIQUE: Full-field digital craniocaudal and mediolateral oblique views of both breasts are obtaine d for evaluation. Computer aided detection was applied. COMPARISON: 08/30/2018 BREAST PARENCHYMAL DENSITY: Level A - Mostly fat. FINDINGS: There is no new suspicious mass, microcalcification or region of architectural distortion. IMPRESSION: BI-RADS Category 2: Benign finding(s). RECOMMENDATION: Annual mammography is recommended. If your mammogram demonstrates that you have dense breast tissue, which could hide abnormalities, and if you have other risk factors for breast cancer that have been identified, you might benefit from s upplemental screening tests that may be suggested by your ordering physician. Dense breast tissue, i n and of itself, is a relatively common condition. This information is not provided to cause undue c oncern, but rather to raise your awareness and to promote discussion with your physician regarding th e presence of other risk factors, in addition to dense breast tissue. A report of your mammography re sults will be sent to you and your physician. You should contact your physician if you have any ques tions or concerns regarding this report. Mammography is a sensitive method for finding small breast cancers, but it does not detect them all a nd is not a substitute for careful clinical examination. A negative mammogram does not negate a clin ically suspicious finding and should not result in delay in biopsying a clinically suspicious abnorma lity. PQRS compliance statement - Patient information was entered into a reminder system with a target due date for the next mammogram. "Our facility is accredited by the [employer] Mammography [employer]." Electronically signed by: Sherrill Crowder MD (06/15/2021 11:01 AM) [id number]
== END ==
LOC: MAMMO 09:20
PROVIDERS: ATTEND Physician Assistant
DX: Z12.31 Encounter for screening mammogram for malignant neoplasm of breast (principal)
CPT/HCPCS: 77067

== ENCOUNTER → 2021-08-05 | Outpatient (CLI) | payer OTHER ==
[2017-08-21 16:36] VITALS: BP 130/67
--- NOTE | 2021-08-05 10:00 | RAD ---
EXAM: Pelvic sonogram. HISTORY: Vaginal bleeding. TECHNIQUE: Transabdominal sonographic imaging of the pelvis was performed. COMPARISON: None. FINDINGS: The exam is limited due to patient body habitus. The uterus and ovaries are absent. No pelv ic mass or cyst is seen. There is no pelvic free fluid. The bladder and vaginal cuff are obscured. IMPRESSION: 1. Limited exam due to patient body habitus. The bladder and vaginal cuff are obscured. 2. Surgically absent uterus and ovaries. 3. No suspicious or acute sonographic finding. Electronically signed by: Sherrill Crowder MD (08/05/2021 9:57 AM) [facility]
--- NOTE | 2021-08-05 10:03 | RAD ---
EXAM: Abdomen sonogram. HISTORY: Pain. TECHNIQUE: Sonographic imaging of the abdomen was performed. COMPARISON: None. FINDINGS: The liver is enlarged. There is heterogeneous hepatic echotexture. The common bile duct is obscured. The gallbladder is surgically absent. The right kidney measures 9.7 cm [id number]. The le ft kidney, pancreas, spleen, aorta and inferior vena cava are partially obscured due to patient body habitus and immobility. IMPRESSION: 1. Extremely limited exam due to patient body habitus and immobility. The majority of the abdominal v isceral and vascular structures are not well assessed. 2. Hepatomegaly and heterogeneous hepatic echotexture, a finding which can be seen with steatosis or cirrhosis. Correlate with liver enzyme laboratory values. 3. Cholecystectomy. Electronically signed by: Sherrill Crowder MD (08/05/2021 10:00 AM) [facility]
== END ==
LOC: US 08:20
PROVIDERS: ATTEND Physician Assistant
DX: R16.0 Hepatomegaly, not elsewhere classified (principal); R10.9 Unspecified abdominal pain; N93.9 Abnormal uterine and vaginal bleeding, unspecified; Z90.710 Acquired absence of both cervix and uterus
CPT/HCPCS: 76700; 76856

== ENCOUNTER → 2021-10-27 | Outpatient (CLI) | payer OTHER ==
[2017-08-21 16:36] VITALS: BP 130/67
--- NOTE | 2021-10-28 13:26 | RAD ---
XR SHOULDER_LEFT 2+ VIEWS History: Reason: PAIN AFTER FALL 8 WEEKS AGO. IMAGES COMPLETED IN WHEELCHAIR / Spl. Instructions: / History: Technique: 3 views left shoulder Comparison: None. Findings: Degraded evaluation due to patient's immobility and body habitus. No dislocation. No definite acute f racture. Moderate acromioclavicular DJD. Mild glenohumeral DJD. Impression: 1. Degraded evaluation. If persistent clinical concern MRI can further assess. 2. No definite acute osseous abnormality. Electronically signed by: Ever Harris DO (10/28/2021 1:23 PM) [facility]
== END ==
LOC: RAD 11:14
PROVIDERS: ATTEND Physician Assistant
DX: M19.012 Primary osteoarthritis, left shoulder (principal)
CPT/HCPCS: 73030